=== PATIENT | female | born 1960 | race Caucasian/White ===

== ENCOUNTER 2021-03-12 12:26 | Emergency (ER) | payer OTHER ==
[~2021-03-12 12:26] MED LIST: BACTRIM DS TAB1 EACH PO; DIFLUCAN150 MG PO; NORCO 5-325 TA1 EACH PO
[2021-03-12] MEDS ORDERED: NORCO 5-325 TA1 EACH PO (15:24)
== END 2021-03-12 15:42 | disposition home or self-care (01) ==
LOC: FER 12:26
DX: S52.131A Displaced fracture of neck of right radius, initial encounter for closed fracture (principal); S52.001A Unspecified fracture of upper end of right ulna, initial encounter for closed fracture; M25.531 Pain in right wrist; I10 Essential (primary) hypertension; E03.9 Hypothyroidism, unspecified; Z79.899 Other long term (current) drug therapy; W19.XXXA Unspecified fall, initial encounter; Y92.511 Restaurant or cafe as the place of occurrence of the external cause
CPT/HCPCS: 73080; 73110

== ENCOUNTER 2021-03-16 23:10 | Emergency (ER) | payer OTHER ==
[2021-03-17] MEDS ORDERED: PERCOCET 5-3251 EACH PO (00:31)
== END 2021-03-17 00:41 | disposition home or self-care (01) ==
LOC: FER 23:10
DX: L76.32 Postprocedural hematoma of skin and subcutaneous tissue following other procedure (principal); G89.18 Other acute postprocedural pain; M25.522 Pain in left elbow; E11.9 Type 2 diabetes mellitus without complications; I10 Essential (primary) hypertension; E78.5 Hyperlipidemia, unspecified; Y83.8 Other surgical procedures as the cause of abnormal reaction of the patient, or of later complication, without mention of misadventure at the time of the procedure; Z98.890 Other specified postprocedural states
CPT/HCPCS: 96372; J1170

== ENCOUNTER 2021-06-30 11:50 | Emergency (ER) | payer OTHER ==
[~2021-06-30 11:50] MED LIST changes: +PERCOCET 5-3251 EACH PO
[2021-06-30 13:22] LABS: INFLUENZA A NAA NEGATIVE (NEGATIVE)
[2021-06-30 13:24] LABS: CORONAVIRUS 2019 SARS-COV-2 POSITIVE (NEGATIVE)
[2021-06-30] MEDS ORDERED: ZOFRAN4 M1 PO (13:41)
== END 2021-06-30 14:33 | disposition home or self-care (01) ==
LOC: FER 11:50
PROVIDERS: Internal Medicine
DX: U07.1 COVID-19 (principal); E11.9 Type 2 diabetes mellitus without complications; I10 Essential (primary) hypertension
CPT/HCPCS: 99284; U0002

== ENCOUNTER 2021-07-06 19:07 | Inpatient (IN) | payer OTHER ==
[~2021-07-06] VITALS: Ht 167.6 cm; Wt 137.1 kg
[~2021-07-06 19:07] MED LIST changes: +ZOFRAN4 M1 PO
[2021-07-06 19:52] LABS: BASOPHIL 0.4 % (0-2); EOSINOPHIL 0.1 % (0-5); HCT 38.9 % (37.0-47.0); HGB 13.4 g/dl (12.5-16.0); LYMPHOCYTE 5.3 % (15-48); MCH 29.4 pg (25.0-31.0); MCHC 34.4 g/dL (32.0-36.0); MCV 85.3 fL (78.0-100.0); MONOCYTE 2.5 % (0-12); MPV 10.3 fL (6.0-9.5); NEUTROPHIL 87.1 % (41-80); NRBC 0.1; PLT 408 K/uL (150-400); RBC 4.56 M/uL (4.20-5.40); RDW 13.8 % (11.5-14.0); WBC 19.1 K/uL (4.0-10.5)
[2021-07-06 19:59] LABS: PTT 30.9 SECONDS (24.4-34.7)
[2021-07-06 20:00] LABS: PROTHROMBIN TIME 15.5 SECONDS (11.8-13.4)
[2021-07-06 20:01] LABS: PRO-BNP 902 pg/mL (<125)
[2021-07-06 20:21] LABS: LACTIC ACID 3.7 mmol/L (0.4-1.9)
[2021-07-06 20:53] LABS: ALBUMIN 2.7 g/dL (3.4-5.0); ALKALINE PHOSHATASE 87 U/L (46-116); ALT 29 U/L (14-59); AST 62 U/L (15-37); BILIRUBIN - TOTAL 0.8 mg/dL (0.2-1.0); BUN 77 mg/dL (7-18); BUN/CREAT RATIO (CALC) 40.5 RATIO; CHLORIDE 98 mmol/L (98-107); CO2 (BICARBONATE) 17 mmol/L (21-32); GLUCOSE 210 mg/dL (74-106); LDH 1023 U/L (81-234); POTASSIUM 4.9 mmol/L (3.5-5.1); TOTAL PROTEIN 7.7 g/dL (6.4-8.2)
[2021-07-06 20:54] LABS: C-REACTIVE PROTEIN > 18.00 mg/dL (<=0.90)
[2021-07-06 21:28] LABS: D-DIMER > 20.00 ug/mLFEU (0.00-0.41)
[2021-07-06 23:23] LABS: BILIRUBIN NEGATIVE (NEGATIVE); BLOOD 3+ Ery/uL (NEGATIVE); CLARITY CLEAR (CLEAR); COLOR YELLOW (YELLOW); GLUCOSE (U) NORMAL (NORMAL); LEUKOCYTES NEGATIVE Leu/uL (NEGATIVE); NITRITE NEGATIVE (NEGATIVE); PROTEIN 2+ mg/dL (NEGATIVE)
[2021-07-06 23:51] LABS: BACTERIA 4+
[2021-07-06 23:52] LABS: AMORPHOUS URATES CRYSTALS MODERATE; MUCOUS MODERATE
[2021-07-07] MEDS ORDERED: HCTZ25 MG PO (01:02)
[2021-07-07] MEDS ORDERED: ALLOPURINOL 30300 MG PO (01:02)
[2021-07-07] MEDS ORDERED: LEVOTHYROXINE100 MCG PO (01:03)
[2021-07-07] MEDS ORDERED: LISINOPRIL40 MG PO (01:04)
[2021-07-07 06:24] LABS: BILIRUBIN - TOTAL 0.6 mg/dL (0.2-1.0); CREATININE 2.73 mg/dL (0.51-0.95); GLOBULIN (CALCULATION) 4.3 g/dL; POTASSIUM 5.9 mmol/L (3.5-5.1); TOTAL PROTEIN 6.3 g/dL (6.4-8.2)
[2021-07-07 06:31] LABS: BASOPHIL 0.4 % (0-2); EOSINOPHIL 0.6 % (0-5); HCT 33.8 % (37.0-47.0); HGB 11.4 g/dl (12.5-16.0); LYMPHOCYTE 4.3 % (15-48); MCHC 33.7 g/dL (32.0-36.0); MCV 88.9 fL (78.0-100.0); MONOCYTE 2.9 % (0-12); MPV 10.3 fL (6.0-9.5); NEUTROPHIL 87.6 % (41-80); NRBC 0; PLT 249 K/uL (150-400); RDW 14.4 % (11.5-14.0)
[2021-07-07 06:32] LABS: WBC 14.7 K/uL (4.0-10.5)
--- NOTE | 2021-07-07 06:33 | NUR ---
PATIENT HAD 100 ML OF URINE OUT THIS MORNING, AFTER 2000ML OF FLUIDS, REPORTED TO MADDI POPE, NO FURTHER ORDERS.
[2021-07-07 17:34] LABS: CREATININE 3.64 mg/dL (0.51-0.95); POTASSIUM 5.4 mmol/L (3.5-5.1)
[2021-07-08 03:58] LABS: BASOPHIL 0.2 % (0-2); EOSINOPHIL 0 % (0-5); HCT 28.8 % (37.0-47.0); LYMPHOCYTE 5.5 % (15-48); MCH 30.3 pg (25.0-31.0); MCHC 34.7 g/dL (32.0-36.0); MCV 87.3 fL (78.0-100.0); MONOCYTE 2.3 % (0-12); MPV 10.9 fL (6.0-9.5); NEUTROPHIL 89.5 % (41-80); NRBC 0; PLT 231 K/uL (150-400); RDW 14.6 % (11.5-14.0); WBC 9.5 K/uL (4.0-10.5)
[2021-07-08 04:17] LABS: ALBUMIN 1.8 g/dL (3.4-5.0); ALKALINE PHOSHATASE 55 U/L (46-116); ALT 21 U/L (14-59); AST 30 U/L (15-37); BILIRUBIN - TOTAL 0.4 mg/dL (0.2-1.0); C-REACTIVE PROTEIN >18.00 mg/dL (<=0.90); CHLORIDE 100 mmol/L (98-107); CO2 (BICARBONATE) 21 mmol/L (21-32); CREATININE 4.25 mg/dL (0.51-0.95); GLUCOSE 368 mg/dL (74-106); POTASSIUM 4.7 mmol/L (3.5-5.1); TOTAL PROTEIN 5.8 g/dL (6.4-8.2)
[2021-07-08 04:21] LABS: BUN 96 mg/dL (7-18)
--- NOTE | 2021-07-08 13:10 | NUR ---
RD contacted Devora MCCLELLAN with new EN recommendations; also completed phone call to MD Almaguer to provide same information and recommendations supporting changes. will follow POC.
[2021-07-08 18:40] LABS: CREATININE 4.85 mg/dL (0.51-0.95); POTASSIUM 4.7 mmol/L (3.5-5.1)
[2021-07-09 04:47] LABS: CREATININE 4.75 mg/dL (0.51-0.95); PHOSPHORUS 5.4 mg/dL (2.6-4.7); POTASSIUM 3.6 mmol/L (3.5-5.1)
--- NOTE | 2021-07-09 20:30 | NUR ---
[address] VORA WITH PLACEMENT OF LEFT RADIAL SANDY PLACE.
[2021-07-10 07:29] LABS: CREATININE 4.38 mg/dL (0.51-0.95); POTASSIUM 4.1 mmol/L (3.5-5.1)
[2021-07-10 07:57] LABS: BASOPHIL 0.5 % (0-2); EOSINOPHIL 3.1 % (0-5); HGB 10.7 g/dl (12.5-16.0); LYMPHOCYTE 8.1 % (15-48); MCH 29.4 pg (25.0-31.0); MCHC 33.4 g/dL (32.0-36.0); MCV 87.9 fL (78.0-100.0); MONOCYTE 0.8 % (0-12); MPV 9.9 fL (6.0-9.5); NEUTROPHIL 81.8 % (41-80); NRBC 0.2; PLT 368 K/uL (150-400); RBC 3.64 M/uL (4.20-5.40); RDW 14.4 % (11.5-14.0)
[2021-07-10 07:59] LABS: WBC 13.1 K/uL (4.0-10.5)
--- NOTE | 2021-07-10 11:36 | NUR ---
PT WAS TAKEN DOWN TO CT BY CARLI MCCLELLAN, NISH OROZCO, YEYO RT AND DAGMAR ACUÑA YEYO BAGGED PATIENT KEEPING SATS ABOVE 90% PT DID DESAT TO 83% DURRING THE CT SCAN. PT WAS TRANSFERRED BACK TO ICU ROOM 1 PLACED BACK ON VENTILATOR AND PLACED FIO2 ON 100% FENTANYL WAS INCREASED TO 300MCG AND VERSED WAS INCREASED TO 10MCG
--- NOTE | 2021-07-10 13:08 | NUR ---
RD contacted Keeley GODINEZ; recommendations to place modular proteins (([id number]) on hold d/t increased BUN; decreased kidney function.
--- NOTE | 2021-07-10 16:48 | NUR ---
VENT SETTING CHANGES 1138 FIO2 100% FOR 5 MINUTES 1143 FIO2 DECREASED TO 85% 1600
[2021-07-11 08:02] LABS: BASOPHIL 0.4 % (0-2); EOSINOPHIL 2.5 % (0-5); HCT 29.3 % (37.0-47.0); HGB 9.5 g/dl (12.5-16.0); LYMPHOCYTE 6.4 % (15-48); MCH 29.7 pg (25.0-31.0); MCHC 32.4 g/dL (32.0-36.0); MCV 91.6 fL (78.0-100.0); NEUTROPHIL 83.6 % (41-80); NRBC 0.2; PLT 300 K/uL (150-400); RDW 14.6 % (11.5-14.0)
[2021-07-11 08:05] LABS: WBC 11.1 K/uL (4.0-10.5)
[2021-07-11 08:14] LABS: ALBUMIN 1.9 g/dL (3.4-5.0); BILIRUBIN - TOTAL 0.5 mg/dL (0.2-1.0); C-REACTIVE PROTEIN 4.9 mg/dL (<=0.90); CREATININE 4.58 mg/dL (0.51-0.95); GLOBULIN (CALCULATION) 3.1 g/dL; POTASSIUM 4.6 mmol/L (3.5-5.1)
[2021-07-11 08:28] LABS: LACTIC ACID 1.9 mmol/L (0.4-1.9)
--- NOTE | 2021-07-11 18:49 | NUR ---
REMOVED SANDY, IT HAD NO BLOOD RETURN AND WAVE FORM WAS POOR. PER MD ROD BERNSTEIN
--- NOTE | 2021-07-11 18:51 | NUR ---
[facility] CALLED 2 TIMES FOR UPDATEDS, STILL NO BEDS AVAILABLE
--- NOTE | 2021-07-11 18:54 | NUR ---
0815 CATHFLO TO THE BROWN PORT OF CENTRAL LINE, AFTER 2 HRS HAD GOOD BLOOD FLOW
[2021-07-12 04:18] LABS: BASOPHIL 0.3 % (0-2); EOSINOPHIL 1.4 % (0-5); HCT 28.3 % (37.0-47.0); HGB 9.2 g/dl (12.5-16.0); LYMPHOCYTE 4.6 % (15-48); MCH 29.8 pg (25.0-31.0); MCHC 32.5 g/dL (32.0-36.0); MCV 91.6 fL (78.0-100.0); MONOCYTE 1.5 % (0-12); NEUTROPHIL 86.8 % (41-80); NRBC 0.3; PLT 264 K/uL (150-400); RBC 3.09 M/uL (4.20-5.40); RDW 14.6 % (11.5-14.0); WBC 10.7 K/uL (4.0-10.5)
[2021-07-12 04:21] LABS: BILIRUBIN - TOTAL 0.4 mg/dL (0.2-1.0); C-REACTIVE PROTEIN 3.7 mg/dL (<=0.90); CREATININE 3.83 mg/dL (0.51-0.95); GLOBULIN (CALCULATION) 3.5 g/dL; POTASSIUM 4.8 mmol/L (3.5-5.1); TOTAL PROTEIN 5.5 g/dL (6.4-8.2)
--- NOTE | 2021-07-12 11:12 | NUR ---
CATHFLO APPLIED IN THE WHITE LUMEN OF HER CENTRAL LINE. IT HAD NO BLOOD RETURN
--- NOTE | 2021-07-13 01:48 | NUR ---
0011 BARBRA FROM FROM [facility] CALLED TO GET UPDATE ON PT. ER,RN
--- NOTE | 2021-07-13 03:14 | NUR ---
CODY FROM TRANSFER CENTER CALLED FOR UPDATE ON PT. 0312 ER,RN
[2021-07-13 06:01] LABS: BASOPHIL 0.2 % (0-2); EOSINOPHIL 1.5 % (0-5); HCT 27.7 % (37.0-47.0); HGB 8.9 g/dl (12.5-16.0); LYMPHOCYTE 8.5 % (15-48); MCH 29.9 pg (25.0-31.0); MCHC 32.1 g/dL (32.0-36.0); MONOCYTE 3.1 % (0-12); MPV 10.4 fL (6.0-9.5); NEUTROPHIL 79.5 % (41-80); NRBC 0.2; PLT 245 K/uL (150-400); RBC 2.98 M/uL (4.20-5.40); RDW 14.6 % (11.5-14.0)
[2021-07-13 06:24] LABS: CREATININE 2.65 mg/dL (0.51-0.95); MAGNESIUM 2.2 mg/dL (1.8-2.4); POTASSIUM 4.7 mmol/L (3.5-5.1)
[2021-07-13 14:55] LABS: BILIRUBIN NEGATIVE (NEGATIVE); BLOOD 3+ Ery/uL (NEGATIVE); CLARITY CLEAR (CLEAR); COLOR YELLOW (YELLOW); GLUCOSE (U) NORMAL (NORMAL); LEUKOCYTES TRACE Leu/uL (NEGATIVE); NITRITE NEGATIVE (NEGATIVE); PROTEIN TRACE (LOW) mg/dL (NEGATIVE); UROBILINOGEN 0.2 mg/dL (0.2-1.0)
[2021-07-13 15:07] LABS: BACTERIA TRACE; SQUAMOUS EPITHELIAL CELLS RARE; URINARY WBC RARE
[2021-07-13 15:23] LABS: URINE CREATININE 36.83 mg/dL (29.00-226.00)
[2021-07-14 04:38] LABS: BASOPHIL 0.6 % (0-2); EOSINOPHIL 1.6 % (0-5); HCT 29.5 % (37.0-47.0); HGB 9.3 g/dl (12.5-16.0); LYMPHOCYTE 8.4 % (15-48); MCHC 31.5 g/dL (32.0-36.0); MCV 95.2 fL (78.0-100.0); MONOCYTE 3.3 % (0-12); MPV 9.8 fL (6.0-9.5); NEUTROPHIL 77.3 % (41-80); NRBC 0.4; PLT 248 K/uL (150-400); RDW 14.7 % (11.5-14.0); WBC 8.1 K/uL (4.0-10.5)
[2021-07-14 05:03] LABS: ALBUMIN 2.2 g/dL (3.4-5.0); BILIRUBIN - TOTAL 0.3 mg/dL (0.2-1.0); CREATININE 1.95 mg/dL (0.51-0.95); GLOBULIN (CALCULATION) 3.5 g/dL; POTASSIUM 4.9 mmol/L (3.5-5.1); TOTAL PROTEIN 5.7 g/dL (6.4-8.2)
--- NOTE | 2021-07-14 17:31 | NUR ---
1710 PATIENT PLACED IN SUPINE POSITION, ALL LINES AND TUBES IN PLACE. PATIENT TOLERATED WELL
[2021-07-15 03:26] LABS: BASOPHIL 0.5 % (0-2); EOSINOPHIL 1.4 % (0-5); HCT 30.1 % (37.0-47.0); HGB 9.6 g/dl (12.5-16.0); LYMPHOCYTE 8.4 % (15-48); MCH 30.1 pg (25.0-31.0); MCHC 31.9 g/dL (32.0-36.0); MCV 94.4 fL (78.0-100.0); MONOCYTE 3.8 % (0-12); MPV 9.2 fL (6.0-9.5); NEUTROPHIL 76.5 % (41-80); NRBC 0.4; PLT 248 K/uL (150-400); RBC 3.19 M/uL (4.20-5.40); WBC 8.5 K/uL (4.0-10.5)
[2021-07-15 03:45] LABS: ALBUMIN 2.2 g/dL (3.4-5.0); BILIRUBIN - TOTAL 0.3 mg/dL (0.2-1.0); CREATININE 1.58 mg/dL (0.51-0.95); GLOBULIN (CALCULATION) 3.5 g/dL; MAGNESIUM 1.9 mg/dL (1.8-2.4); PHOSPHORUS 4.9 mg/dL (2.6-4.7); TOTAL PROTEIN 5.7 g/dL (6.4-8.2)
--- NOTE | 2021-07-15 09:08 | NUR ---
S/W ACCESS CENTER FOR [facility], STILL AWAITING BED.
--- NOTE | 2021-07-15 11:16 | NUR ---
S/W AUDREY FROM [facility] FOR STATUS UPDATE, STILL NO BED CAPACITY AT THIS TIME
--- NOTE | 2021-07-15 11:27 | NUR ---
PATIENT SATTING 88-89% ON 90% FIO2, DR PATHAK NOTIFIED VIA TELEPHONE, PATIENT TURNED UP TO 100% FIO2 AT THIS TIME
--- NOTE | 2021-07-15 13:05 | NUR ---
1200 PATIENT HAVING MULTIPLE LOOSE STOOL, MD NOTIFIED AND CDIFF SAMPLE ORDERED. PATIENT HAD 50ML OF RESIDUAL NOTED FROM RIGHT NGT. MD NOTIFIED AND STATED TO RECHECK IN 4 HOURS.
--- NOTE | 2021-07-15 13:34 | NUR ---
S/W DR BACK VIA TELEPHONE TO GIVE UPDATE ON PATIENT, WOULD LIKE BMP IN AM BUT ONE IS ALREADY ORDERED FROM HOSPITALIST
--- NOTE | 2021-07-15 18:21 | NUR ---
1600 RIGHT NGT RESIDUAL 100, MD NOTIFIED AND ORDERED TO HOLD TUBE FEEDS FOR 4 HOURS THEN RECHECK RESIDUAL
[2021-07-15 18:42] LABS: CREATININE 1.51 mg/dL (0.51-0.95); POTASSIUM 5.6 mmol/L (3.5-5.1)
--- NOTE | 2021-07-15 22:45 | NUR ---
RD contacted unit; discussed TF regimen with Kay; continues to receive Nepro 30cc/hr; TF's held last shift d/t residuals. will consult MD on 07/16 re: VINAY's
[2021-07-16 03:36] LABS: BASOPHIL 0.5 % (0-2); EOSINOPHIL 1.5 % (0-5); MCH 30.7 pg (25.0-31.0); MCHC 32.3 g/dL (32.0-36.0); MCV 95.1 fL (78.0-100.0); MONOCYTE 4.1 % (0-12); MPV 9.3 fL (6.0-9.5); NEUTROPHIL 77.7 % (41-80); NRBC 0.2; PLT 259 K/uL (150-400); RBC 3.26 M/uL (4.20-5.40); RDW 15.3 % (11.5-14.0); WBC 10.2 K/uL (4.0-10.5)
[2021-07-16 03:57] LABS: ALBUMIN 2.2 g/dL (3.4-5.0); BILIRUBIN - TOTAL 0.4 mg/dL (0.2-1.0); CREATININE 1.44 mg/dL (0.51-0.95); GLOBULIN (CALCULATION) 3.7 g/dL; MAGNESIUM 1.7 mg/dL (1.8-2.4); PHOSPHORUS 5.7 mg/dL (2.6-4.7); TOTAL PROTEIN 5.9 g/dL (6.4-8.2)
[2021-07-17 04:16] LABS: BASOPHIL 0.4 % (0-2); HCT 33.7 % (37.0-47.0); HGB 10.6 g/dl (12.5-16.0); LYMPHOCYTE 5.8 % (15-48); MCH 30.1 pg (25.0-31.0); MCHC 31.5 g/dL (32.0-36.0); MCV 95.7 fL (78.0-100.0); MONOCYTE 4.3 % (0-12); MPV 9.3 fL (6.0-9.5); NEUTROPHIL 84.1 % (41-80); NRBC 0; PLT 257 K/uL (150-400); RBC 3.52 M/uL (4.20-5.40); RDW 15.5 % (11.5-14.0)
[2021-07-17 04:20] LABS: WBC 13.6 K/uL (4.0-10.5)
[2021-07-17 04:48] LABS: ALBUMIN 2.4 g/dL (3.4-5.0); BILIRUBIN - TOTAL 0.4 mg/dL (0.2-1.0); C-REACTIVE PROTEIN 2.9 mg/dL (<=0.90); CREATININE 1.48 mg/dL (0.51-0.95); GLOBULIN (CALCULATION) 3.7 g/dL; MAGNESIUM 1.7 mg/dL (1.8-2.4); PHOSPHORUS 7.1 mg/dL (2.6-4.7); POTASSIUM 5.3 mmol/L (3.5-5.1); TOTAL PROTEIN 6.1 g/dL (6.4-8.2)
[2021-07-17 14:04] LABS: BILIRUBIN NEGATIVE (NEGATIVE); BLOOD 2+ Ery/uL (NEGATIVE); CLARITY HAZY (CLEAR); COLOR YELLOW (YELLOW); GLUCOSE (U) NORMAL (NORMAL); LEUKOCYTES 1+ Leu/uL (NEGATIVE); NITRITE NEGATIVE (NEGATIVE); PROTEIN NEGATIVE (NEGATIVE); SPECIFIC GRAVITY 1.015 (1.001-1.030); UROBILINOGEN 0.2 mg/dL (0.2-1.0)
[2021-07-17 14:12] LABS: BACTERIA 1+; SQUAMOUS EPITHELIAL CELLS RARE
[2021-07-17 14:13] LABS: YEAST PRESENT
--- NOTE | 2021-07-17 14:55 | NUR ---
PICC LINE PLACE LEFT UPPER ARM, BY ESTEBAN MCCLELLAN,
--- NOTE | 2021-07-17 16:13 | NUR ---
1515ORDER RECEIVED FOR PICC LINE PLACEMENT. RISKS AND BENEFITS EXPLAINED TO FAMILY PER RAYMUNDO JOSHI R.N. ICU CONSENT SIGNED. PT'S LEFT UPPER ARM BASILIC VEIN VISUALIZED USING THE SITE RITE 6 ULTRASOUND MACHINE. PT THEN PREPPED AND DRAPED IN STERILE FASHION. THE AREA WAS CLEANSED WITH CHLORAPREP. THE AREA WAS ANESTHETIZED WITH 1% LIDOCAINE. A 21GA GUIDE NEEDLE WAS USED. GOOD BLOOD RETURN. THE GUIDE WIRE WAS THEN REMOVED AND A CAP WAS PLACED ON THE END. THE PT WAS MEASURED FOR THE PICC PLACEMENT. PICC WAS TRIMMED AT 47 CM AND FLUSHED. THE INTRODUCER WAS REMOVED AND THE PICC CATHETER WAS GUIDED INTO POSITION. THE SHEATH WAS PEELED BACK. A STERILE BIOPATCH WAS PLACED AT THE INSERTION SITE. A STAT LOCK WAS PLACED ON. A STERILE TEGADERM WAS PLACED OVER THE PICC LINE. A STAT PORTABLE CHEST XRAY WAS OBTAINED. PER RADIOLOGIST THE PICC LINE NEEDED TO BE PULLED BACK 2 CM. AFTER PULLING BACK 2 CM THE END OF THE PICC WAS WASN IN THE SVC PER RADIOLOGIST A STERILE DRESSING WAS APPLIED OVER THE BIOPATCH AND PICC LINE. STYLET WAS REMOVED AND A CLEAR CAP WAS FLUSHED AND PLACED ON THE END. PT HAS A 5FR 2 LUMEN POWER PICC. TRIMMED AT 47 CM, INSERTION 3 CM, BICEP 50 CM. GOOD BLOOD RETURN NOTED. PT TOLERATED WELL. REPORT GIVEN TO RAYMUNDO JOSHI R.N. ON ICU. THE PT'S BED WAS LOWERED TO THE GROUND, SR UP X 4 PER ICU PROTOCOL. .
[2021-07-18 04:51] LABS: BASOPHIL 0.3 % (0-2); EOSINOPHIL 2.1 % (0-5); HCT 32.9 % (37.0-47.0); HGB 10.3 g/dl (12.5-16.0); LYMPHOCYTE 4.6 % (15-48); MCH 30.5 pg (25.0-31.0); MCHC 31.3 g/dL (32.0-36.0); MCV 97.3 fL (78.0-100.0); MONOCYTE 3.1 % (0-12); MPV 9.5 fL (6.0-9.5); NEUTROPHIL 88.2 % (41-80); NRBC 0; PLT 207 K/uL (150-400); RBC 3.38 M/uL (4.20-5.40); RDW 15.5 % (11.5-14.0); WBC 13.3 K/uL (4.0-10.5)
[2021-07-18 05:06] LABS: ALBUMIN 2.3 g/dL (3.4-5.0); BILIRUBIN - TOTAL 0.5 mg/dL (0.2-1.0); BUN/CREAT RATIO (CALC) 45.1 RATIO; CREATININE 1.53 mg/dL (0.51-0.95); GLOBULIN (CALCULATION) 3.7 g/dL; POTASSIUM 4.9 mmol/L (3.5-5.1)
--- NOTE | 2021-07-18 18:20 | NUR ---
1330 PT WAS PRONED TODAY, RT AT HEAD AND 6 STAFF MEMBERS TO TRUN HER. PT TOLERATED WELL. TRUN BACK TO SUPINE AT 5:30 07/19/21
[2021-07-19 03:42] LABS: BASOPHIL 0.4 % (0-2); EOSINOPHIL 3.2 % (0-5); HCT 32.7 % (37.0-47.0); LYMPHOCYTE 5.6 % (15-48); MCH 29.9 pg (25.0-31.0); MCHC 30.6 g/dL (32.0-36.0); MCV 97.9 fL (78.0-100.0); MONOCYTE 3.8 % (0-12); MPV 9.2 fL (6.0-9.5); NEUTROPHIL 85.9 % (41-80); NRBC 0; PLT 199 K/uL (150-400); RBC 3.34 M/uL (4.20-5.40); RDW 15.6 % (11.5-14.0); WBC 13.9 K/uL (4.0-10.5)
[2021-07-19 04:11] LABS: C-REACTIVE PROTEIN 4.2 mg/dL (<=0.90); CREATININE 1.45 mg/dL (0.51-0.95)
--- NOTE | 2021-07-19 05:53 | NUR ---
0515 6 NURSING STAFF AND 1 RT AT BEDSIDE. CHECKLIST READ. LINES AND TUBES SECURED, HANDS TUCKED PALM UP, DRESSING APPLIED TO PRESSURE INJURY ON COCCYX, PT TURNED FOLLOWING SUPINATION PROTOCOL. STOCK ORDER LISTER AT BEDSIDE. PT TOLERATED WELL HR-98 BP-171/70, O2-100%, R-30. LINES/TUBES REMAINED SECURE/INTACT. ETT TUBE MAINTAINED PLACEMENT 25@LIP. FOAM DRESSINGS REMOVED. STAT LOCK APPLIED TO F/C. FACIAL AND ORBITAL EDEMA NOTED. EDEMA TO LIPS, ORAL AND NASAL DRAINAGE NOTED-SUCTIONED DURING ORAL CARE. NO OPEN AREAS NOTED TO FACE OR MOUTH. PERRLA INTACT, PUPILS EQUAL AND REACTIVE. SKIN TEAR NOTED TO RT ELBOW CREASE. SKIN INTACT REDNESS, BLANCHABLE. NO OPEN AREAS NOTED. CHEST XRAY AND ABG OBTAINED POST SUPINATION. TUBE FEEDS RESTARTED.
[2021-07-20 04:01] LABS: BASOPHIL 0.4 % (0-2); EOSINOPHIL 2.4 % (0-5); HGB 10.4 g/dl (12.5-16.0); LYMPHOCYTE 5.3 % (15-48); MCH 29.9 pg (25.0-31.0); MCHC 30.6 g/dL (32.0-36.0); MCV 97.7 fL (78.0-100.0); MONOCYTE 3.8 % (0-12); MPV 9.2 fL (6.0-9.5); NEUTROPHIL 86.9 % (41-80); NRBC 0; PLT 202 K/uL (150-400); RBC 3.48 M/uL (4.20-5.40)
[2021-07-20 04:19] LABS: BUN/CREAT RATIO (CALC) 36.9 RATIO; CREATININE 1.49 mg/dL (0.51-0.95); POTASSIUM 5.3 mmol/L (3.5-5.1)
[2021-07-21 03:56] LABS: BUN/CREAT RATIO (CALC) 28.8 RATIO; CREATININE 2.4 mg/dL (0.51-0.95)
[2021-07-21 04:01] LABS: POTASSIUM 6.7 mmol/L (3.5-5.1)
--- NOTE | 2021-07-21 07:53 | NUR ---
LAYED PATIENT FLAT AND REPOSITIONED COMPLETING INCONTINENCE CARE WITH SECOND RN AT BEDSIDE. WHEN RETURNING PATIENT TO BACK IT WAS NOTED THAT HER HEART RATE DROPPED FROM 110'S TO 60'S WITH A WIDENING QRS COMPLEX. NO PULSE WAS DETECTED, MD WAS CALLED TO BEDSIDE. PATIENT WAS DECLARED AT 0753 BY . FAMILY AT BEDSIDE.
== END 2021-07-21 10:30 | disposition expired | DRG 870 ==
LOC: FER 19:07 → FTCU 21:06 → FICU 07-08 19:13
PROVIDERS: Allergy & Immunology Allergy; Emergency Medicine; Family Medicine; Internal Medicine Cardiovascular Disease; Internal Medicine Nephrology; Nurse Practitioner; ADMIT Internal Medicine
PROC: XW033E5 Introduction of Remdesivir Anti-infective into Peripheral Vein, Percutaneous Approach, New Technology Group 5 (ICD-10-PCS; principal; 2021-07-06)
PROC: 5A1955Z Respiratory Ventilation, Greater than 96 Consecutive Hours (ICD-10-PCS; 2021-07-06)
PROC: 0BH17EZ Insertion of Endotracheal Airway into Trachea, Via Natural or Artificial Opening (ICD-10-PCS; 2021-07-06)
PROC: 8E0ZXY6 Isolation (ICD-10-PCS; 2021-07-06)
PROC: XW0DXM6 Introduction of Baricitinib into Mouth and Pharynx, External Approach, New Technology Group 6 (ICD-10-PCS; 2021-07-06)
PROC: 06HY33Z Insertion of Infusion Device into Lower Vein, Percutaneous Approach (ICD-10-PCS; 2021-07-06)
PROC: XW033H5 Introduction of Tocilizumab into Peripheral Vein, Percutaneous Approach, New Technology Group 5 (ICD-10-PCS; 2021-07-17)
PROC: 02HV33Z Insertion of Infusion Device into Superior Vena Cava, Percutaneous Approach (ICD-10-PCS; 2021-07-17)
DX: A41.89 Other specified sepsis (principal); U07.1 COVID-19; J12.82 Pneumonia due to coronavirus disease 2019; J96.01 Acute respiratory failure with hypoxia; R65.21 Severe sepsis with septic shock; I21.A1 Myocardial infarction type 2; N17.0 Acute kidney failure with tubular necrosis; E87.2 Acidosis; N17.9 Acute kidney failure, unspecified; N13.6 Pyonephrosis; E87.0 Hyperosmolality and hypernatremia; J95.851 Ventilator associated pneumonia; Z66 Do not resuscitate; I46.9 Cardiac arrest, cause unspecified; E87.5 Hyperkalemia; E86.0 Dehydration; E86.1 Hypovolemia; E78.5 Hyperlipidemia, unspecified; E11.649 Type 2 diabetes mellitus with hypoglycemia without coma; E03.9 Hypothyroidism, unspecified; M10.9 Gout, unspecified; I10 Essential (primary) hypertension; Z83.3 Family history of diabetes mellitus; Z98.890 Other specified postprocedural states; Z90.49 Acquired absence of other specified parts of digestive tract; Z79.890 Hormone replacement therapy; Z79.899 Other long term (current) drug therapy
CPT/HCPCS: 36415; 36600; 71045; 71250; 80048; 80053; 81001; 82009; 82570; 82728; 82803; 82962; 83036; 83605; 83615; 83735; 83880; 84100; 84145; 84300; 84484; 85025; 85379; 85610; 85730; 86140; 87040; 87070; 87076; 87077; 87088; 87186; 87205; 87449; 93005; 94002; 94640; 96374; 96375; C1751; C9113; C9399; J0610; J0637; J1100; J1120; J1642; J1650; J1940; J2020; J2250; J2543; J2704; J2997; J3010; J3262; J3370; J3475; J7030; J7050; J7060; J7070; J7120; U0002